=== PATIENT | female | born 2000 | race Caucasian/White ===

== ENCOUNTER 2025-08-15 19:29 | Emergency (ER) | payer OTHER, SELFPAY ==
[2025-08-15 19:31] VITALS: BP 144/91; PULSE 114; RESP 20; TEMP 36.7; O2SAT 99; BMI 43.5
--- NOTE | 2025-08-15 19:33 | ED_ITS ---
HPI - General Adult General Chief complaint: Headache Stated complaint: Headache Time Seen by Provider: 08/15/25 22:38 Source: patient Limitations: no limitations History of Present Illness ED Provider: Priya Ordaz PA-C HPI narrative: 25-year-old female with a history of morbid obesity and headaches, presents with a headache for 2 days. Patient states her discomfort is intermittent and migrates, she has had discomfort retro-orbital on the right, over parietal region now she is experiencing throbbing sensation in the occipital region. Associated nausea and chills. Denies neck pain. Denies cough or cold symptoms, no active fever. Patient states she use [id number] ibuprofen, this helped her headache, however it returned. Denies photophobia, phonophobia or dizziness. Denies nasal congestion. Related Data Previous Rx's ?Medication ?Instructions ?Recorded ketorolac 10 mg tablet 10 mg PO Q6H PRN pain #20 ta bs 08/16/25 prochlorperazine maleate 10 mg 10 mg PO Q8H PRN nausea and 08/16/25 tablet (Compazine) vomiting #10 tabs Allergies Allergy/AdvReac Type Severity Reaction Status Date / Time No Known Allergies Allergy Verified 08/15/25 19:37 Review of Systems Review of Systems: Yes all other systems are reviewed and are negative Constitutional: Constitutional: Reports chills, Denies fatigue, Denies fever(s) and Reports headache(s) ENT: Denies dizziness, Reports headache(s), Denies nasal congestion and Denies neck pain Gastrointestinal: Gastrointestinal: Denies abdominal pain, Reports nausea and Denies vomiting Musculoskeletal: Musculoskeletal: Denies neck pain Neurologic: Denies dizziness and Reports headache(s) Endocrine: Endocrine: Denies fatigue [facility] Past Medical History Attestation statement: The following information was validated with the patient. Social History Social History Alcohol intake: current Alcohol intake frequency: holidays/special occasions only Smoked in Last 30 Days: No Use of substances other than those prescribed or required for medical reasons: No Advance Directives: No Advance Directives Information Provided: No Patient : No Physical Exam ED Vital Signs: Vital Signs - 24 hr 08/15/25 19:31 08/15/25 21:15 08/15/25 23:35 Temperature 98.1 F 98.6 F Pulse Rate 114 H 94 Respiratory Rate 20 18 18 Blood Pressure 144/91 H 130/81 Pulse Oximetry 99 98 Oxygen Delivery Method Room Air Room Air 08/16/25 01:26 Temperature 97.6 F Pulse Rate 85 Respiratory Rate 18 Blood Pressure 119/79 Pulse Oximetry 96 Oxygen Delivery Method Room Air BMI result Body Mass Index 43.5 Const Other: Alert, well-appearing Orientation/consciousness: patient oriented x3 HENMT Other: Left TM dull without overlying erythema, normal external ear canal, no tragal tenderness Neck Neck: Yes full ROM and Yes no meningeal signs Resp Effort & Inspection: normal respiratory effort Cardio Other: Normal peripheral perfusion Skin Other: Warm dry no rash Neuro General: patient oriented x3, gait normal, no meningeal signs, no focal motor deficits and CN's II-XI intact bilaterally Psych Other: Cooperative Course Course Course Narrative: RME, this is a rapid medical exam performed by Raghavendra Escobar please refer to primary provider for complete H&P- 25 year old female presents for evaluation of headache, chills, diarrhea. Symptoms started 2 days ago. She is well appearing. Plan for viral swabs Reevaluation(s) Reevaluation #1: Headache resolved Time: 00:41 Medications Administered Discontinued Medications Generic Name Dose Route Start Last Admin Trade Name Freq PRN Reason Stop Dose Admin Dexamethasone Sodium Phosphate 10 mg 08/15/25 22:48 08/15/25 23:00 Dexamethasone Sod Phosphate 10 Mg/Ml Vial IVPUSH 08/15/25 22:49 10 mg ONCE ONE Administration Diphenhydramine HCl 25 mg 08/15/25 22:48 08/15/25 23:00 Diphenhydramine Hcl 50 Mg/Ml Vial IVPUSH 08/15/25 22:49 25 mg ONCE ONE Administration Sodium Chloride 500 mls @ 500 mls/hr 08/15/25 22:48 08/16/25 00:39 Ns IV 08/15/25 23:47 Infused .Q1H ONE Infusion Ketorolac Tromethamine 15 mg 08/15/25 22:48 08/15/25 23:00 Ketorolac Tromethamine 15 Mg/Ml Vial IVPUSH 08/15/25 22:49 15 mg ONCE ONE Administration Prochlorperazine Edisylate 10 mg 08/15/25 22:48 08/15/25 23:00 Prochlorperazine Edisylate 10 Mg/2 Ml Vial IVPUSH 08/15/25 22:49 10 mg ONCE ONE Administration Medical Decision Making Medical Decision Making [facility] Narrative: 25-year-old female with a history of morbid obesity and headaches, presents with a headache for 2 days. Patient states her discomfort is intermittent and migrates, she has had discomfort retro-orbital on the right, over parietal region now she is experiencing throbbing sensation in the occipital region. Associated nausea and chills. Denies neck pain. Denies cough or cold symptoms, no active fever. Patient states she use [id number] ibuprofen, this helped her headache, however it returned. Denies photophobia, phonophobia or dizziness. Denies nasal congestion. Problem: Obesity History: Per patient I have considered the following differential diagnoses: Migraine, sinus headache, meningitis, intracranial hemorrhage, VAD Plan: Patient here with a headache that has been lingering for the past 2 days, the patient has some viral related symptoms. Viral panel ordered from triage it is negative. She has some symptoms of a migraine type headache, we will give a migraine cocktail. Thought about intracranial hemorrhage, however there has been no preceding head trauma, the patient is neurologically intact, she is not on a blood thinner. Thought about meningitis, but no neck pain no meningeal signs on exam. Thought about VAD, however there was no preceding heavy lifting injury, and again the patient is neurologically intact, no visual changes. On exam, she does have evidence of serous otitis, her headache could be induced by congestion. No indication for imaging or additional lab studies. I have independently reviewed the following tests: Labs: Not , viral panel negative Differential Diagnosis Differential Diagnoses: The differential diagnosis associated with the presentation includes See [facility] Admission/Observation Consideration of admission/observation: Escalation of care including admission/observation considered Not applicable Lab Data [facility] Lab Attestation statement: I reviewed the patient's lab results. Labs: Lab Results 08/15/25 Range/Units 20:06 Beta HCG, Quant < 2 mIU/mL Influenza Type A (PCR) NEGATIVE (Negative) Influenza Type B (PCR) NEGATIVE (Negative) RSV RNA Qual (PCR) NEGATIVE (Negative) SARS-CoV-2 RNA (RT-PCR) NEGATIVE (Negative) Discharge Plan Discharge Clinical Impression: Headache Patient Disposition: Home, Self-Care Instructions: General Headache (ED) Additional Instructions: You were treated for a migraine type headache, it responded to our migraine treatment. See home care instructions. You were tested for influenza, RSV and COVID, the viral panel was negative. If you develop another headache, take the following medications at the same time. It is their synergistic effect that helps to alleviate the headache pain. Ketorolac 10 mg Compazine 10 mg Cuhj-[id number] Benadryl 25 mg Follow up with primary care as needed. Prescriptions: New ketorolac 10 mg tablet 10 mg PO Q6H PRN (Reason: pain) Qty: 20 0RF Rx Instructions: maximum total duration of 5 days from all oral, intranasal, or parenteral formulations, patient received an IV dose of Toradol here in the emergency room prochlorperazine maleate [Compazine] 10 mg tablet 10 mg PO Q8H PRN (Reason: nausea and vomiting) Qty: 10 0RF Interventions: ED Discharge Assessment Last Done: 08/16/25 01:26 Discharge Date/Time: 08/16/25 01:28 Print Language: Indonesian
--- OUTSIDE RECORDS SUMMARY | 2025-08-15 20:15 | XMS_ITS | Clinical Summary ---
Author Organization [facility] Address [address] [place] [id number] Care Team Providers Care Motion Picture Camera Lens Technician Name Role Phone Pcp, No Primary Care Provider Unavailabl e Allergies No known active allergies Medications No known medications Social History Tobacco Use Types Packs/Day Years Used Date Smoking Tobacco: Never Smokeless Tobacco: Never Tobacco Cessation:Counseling Given: Not Answered Comments Unknown Sex and Gender Information Value Date Recorded Sex Assigned at Not on file Legal Sex Female 9:35 AM EDT Gender Identity Not on file Sexual Orientation Not on file Last Filed Vital Signs Vital Sign Reading Time Taken Comments Blood Pressure 141/94 05/17/2023 2:53 PM EDT Pulse 100 05/17/2023 2:53 PM EDT Temperature 37 C (98.6 F) 05/17/2023 2:53 PM EDT Respiratory Rate 14 05/17/2023 2:53 PM EDT Oxygen Saturation 98% 05/17/2023 2:53 PM EDT Inhaled Oxygen Concentration - - Weight 107 kg (236 lb) 05/17/2023 2:53 PM EDT Height 160 cm (5' 3 ) 05/17/2023 2:53 PM EDT Body Mass Index 41.81 05/17/2023 2:53 PM EDT Plan of Treatment Health Maintenance Due Date Last Done Comments HIV Screening 2002 Annual Physical 07/27/2004 Depression Screening 2014 Meningococcal B Vaccine (1 of 2 - Standard) 2018 Pap Smear 2023 DTaP/Tdap/Td Vaccines (7 - Td or Tdap) 03/14/2023 03/14/2013, 03/06/2006, 06/04/2003, Additional history exists COVID-19 Vaccine ( season) 2025 08/26/2022, 01/22/2021, 01/01/2021 Influenza Vaccine (#1) 2025 2, 08/14/2021, 06/06/2020, Additional history exists Zoster Vaccines (1 of 2) 01/25/2052 Respiratory Syncytial Virus (RSV) 60 years and older and/or patients (1 - 1-dose 75+ series) 2077 Pneumococcal: Pediatrics (0 to 5 Yrs) and At-Risk Patients (6 to 49 Years) Aged Out 2002, 2002 No longer el igible based on patient's age to complete this topic Hepatitis B Vaccines Completed 06/04/2003, 2002, 2002, Additional history exists MMR Vaccines Completed 03/06/2006, 06/04/2003 Varicella Vaccines Completed 04/17/2008, 03/18/2004 Meningococcal Vaccine Aged Out 03/14/2013 No gerson etta eligible based on patient's age to complete this topic Hepatitis A Vaccines Completed 04/08/2014, 01/24/20 12 HPV Vaccines Completed 03/28/2017, 03/14/2013 Respiratory Syncytial Virus (RSV) <20 months Aged Out No longer eligible based on patient's age to complete this topic Insurance NA Care Teams Motion Picture Camera Lens Technician Relationship Specialty Start Date End Date Pcp, No PCP - General 05/17/23
[2025-08-15 20:50] LABS: Resp Syncy Virus RNA Qual PCR NEGATIVE (Negative); SARS COV2 PCR INHOUSE NEGATIVE (Negative)
[2025-08-15 21:15] VITALS: BP 130/81; PULSE 94; RESP 18; TEMP 37; O2SAT 98
--- NOTE | 2025-08-15 21:38 | PC.NURSE ---
this RN assumed care of this pt approximately @2100, pt note to be laying supine in hospital stretcher, no apparent distress noted, 20g IV placed to pt left AC, call light provided for safety, educated on need for urine sample, no needs made aware at this time
[2025-08-15 23:35] VITALS: RESP 18
[2025-08-16 01:26] VITALS: BP 119/79; PULSE 85; RESP 18; TEMP 36.4; O2SAT 96
== END 2025-08-16 01:28 | disposition home or self-care (01) ==
PROVIDERS: Physician Assistant; Emergency Provider Emergency Medicine
DX: R51.9 Headache, unspecified (principal); R11.0 Nausea; R68.83 Chills (without fever); Z03.818 Encounter for observation for suspected exposure to other biological agents ruled out
CPT/HCPCS: 84702; 87637; 96361; 96374; 96375; 99284; 99285; J0737; J1100; J1200; J1885